=== PATIENT | male | born 1995 | race Caucasian/White ===

== ENCOUNTER 2016-06-23 01:24 | Emergency (ER) | payer BC, OTHER ==
[2016-06-23] MEDS ORDERED: ACETAMINOPHEN 325 MG TABLET PO ONE (02:15)
[2016-06-23] MEDS ORDERED: HYDROCODONE/ACETAMINOPHEN 5-325 MG TABLET PO ONE (03:06)
[2016-06-23] MEDS ORDERED: DEXAMETHASONE SOD PHOS INJ 10 MG/1 ML VIAL IV ONE (03:06)
[2016-06-23] MEDS ORDERED: HYDROCODONE/ACETAMINOPHEN 5-325 MG 6 TAB/DSPK PO PRN (04:11)
--- NOTE | 2016-06-23 04:14 | ER Document Report ---
ED General - General Chief Complaint: Congestion, ear pain Stated Complaint: CONGESTION Notes: Patient is a 20-year-old male who presents with complaint of bilateral ear pain , nasal congestion, and some cough. No fevers. No vomiting. No diarrhea. He says he feels as if there is a lot of pressure behind both ears. He has been taking some Sudafed at home. No other complaints at this time. TRAVEL OUTSIDE OF THE [place] IN LAST 30 DAYS: No - Related Data Allergies/Adverse Reactions: No Known Allergies Allergy (Verified 02/27/15 15:11) Past Medical History - Social History Smoking Status: Former Smoker Cigarette use (# per day): No Chew tobacco use (# tins/day): No Frequency of alcohol use: None Drug Abuse: None Family History: Reviewed & Not Pertinent GI Medical History: Reports: Hx Gastroesophageal Reflux Disease Past Surgical History: Reports: Hx Tonsillectomy - 06/10/11 - Immunizations Immunizations up to date: Yes Hx Diphtheria, Pertussis, Tetanus Vaccination: Yes - 2007 Review of Systems - Review of Systems Notes: My Normal Review Basic REVIEW OF SYSTEMS: CONSTITUTIONAL : Denies fever, chills, or sweats. Denies recent illness. EENT: He is a congestion. Bilateral ear pain. RESPIRATORY: Denies cough, cold, or chest congestion. Denies shortness of breath, difficulty breathing, or wheezing. GASTROINTESTINAL: Denies abdominal pain. Denies nausea, vomiting, or diarrhea. Denies constipation. Last BM: MUSCULOSKELETAL: Denies neck or back pain or joint pain or swelling. SKIN: Denies rash or skin lesions. NEUROLOGICAL: Denies altered mental status or loss of consciousness. Denies headache. Denies weakness or paralysis or loss of use of either side. Denies problems with gait or speech. Denies sensory or motor loss. ALL OTHER SYSTEMS REVIEWED AND NEGATIVE. Physical Exam - Vital signs Vitals: Temp Pulse Resp BP Pulse Ox 98.6 F 90 16 118/76 95 06/23/16 05:13 06/23/16 05:13 06/23/16 05:13 06/23/16 05:13 06/23/16 05:13 - Notes Notes: General Appearance: Well nourished, alert, cooperative, no acute distress, no obvious discomfort. Vitals: reviewed, See vital signs table. Head: no swelling or tenderness to the head Eyes: PERRL, EOMI, Conjuctiva clear Mouth: No decreasd moisture Throat: No tonsillar inflammation, No airway obstruction, No lymphadenopathy Ears: Patient is clear fluid behind both tympanic membranes consistent with serous otitis media. No redness or erythema to the tympanic membranes. Neck: Supple, no neck tenderness, No thyromegaly Lungs: No wheezing, No rales, No rhonci, No accessory muscle use, good air exchange bilaterally. Heart: Normal rate, Regular rythm, No murmur, no rub Skin: warm, dry, appropriate color, no rash Neuro: speech clear, oriented x 3, normal affect, responds appropriately to questions. Course - Vital Signs Vital signs: Temp Pulse Resp BP Pulse Ox 98.6 F 90 16 118/76 95 06/23/16 05:13 06/23/16 05:13 06/23/16 05:13 06/23/16 05:13 06/23/16 05:13 - Transfer of Care Notes: 06/23/16 07:09 I suspect patient's ear pain is related to pressure behind his ears from eustachian tube dysfunction from his upper respiratory tract infection. I did give him this Decadron. I encouraged him to use Motrin and Sudafed. Encouraged him to inhale steam to help with the congestion. Encouraged him to return to ER immediately if has fevers, severe headache, vomiting, or worsening pain. Patient agrees with plan and will be discharged home. Dictation of this chart was performed using voice recognition software; therefore, there may be some unintended grammatical errors. Discharge - Discharge Clinical Impression: Ear pain Qualifiers: Laterality: bilateral Qualified Code(s): H92.03 - Otalgia, bilateral URI (upper respiratory infection) Qualifiers: URI type: unspecified URI Qualified Code(s): J06.9 - Acute upper respiratory infection, unspecified Condition: Good Disposition: HOME, SELF-CARE Instructions: Oral Narcotic Medication ([facility]) Additional Instructions: UPPER RESPIRATORY ILLNESS: You have a viral infection of the respiratory passages -- a "cold." This common infection causes nasal congestion, drainage, and often sore throat and cough. It is highly contagious. The disease usually lasts about 10 to 14 days. There is no "cure" for the viral infection -- it must run its course. If there is a complication, such as bacterial infection in the nose, sinuses, middle ear, or bronchial tubes, antibiotics may be required. The antibiotics won't affect the virus. Drink plenty of fluids. A humidifier may help. An expectorant medication or decongestant may make you more comfortable. Use acetaminophen or ibuprofen for fever or aches. See the doctor if fever persists over two days, if there is any significant worsening of your symptoms, or if you simply fail to improve as expected. DECONGESTANT MEDICATION: A decongestant medicine has been prescribed. Often this medicine is combined in the same tablet with an antihistamine or expectorant. This type of medicine is helpful in treating a bad cold or sinus condition, as well as in treatment of the nasal congestion of hay fever. It is not of much benefit for lung infections. Decongestant medicines are related to stimulants. They can cause an increase in blood pressure and heart rate. Persons with heart disease and high blood pressure should not take decongestants without discussing this with the physician. If you develop palpitations, chest pain, headache, or tremors, stop the medicine and consult your physician. INHALED BRONCHODILATORS: You have received a treatment of and/or prescription for an inhaled bronchodilator -- a medication which stimulates the airways in the lung to dilate. This improves the flow of air in asthma, bronchitis, and emphysema. These medicines have some similarity to adrenaline, and can cause similar side effects: shakiness, racing heart, and a sense of nervousness. These side effects decrease with time. Contact your doctor if these side effects are severe. Do not over-use the medicine. Too-frequent use of the inhaler may make it ineffective. Call your doctor if the inhaler is not controlling your symptoms at the prescribed doses. STEROID MEDICATION: You have been given an injection of or oral medicine of the cortisone/ steroid class. This medication is used to control inflammation or allergy. Eloy t is usually only given for a short period of time, until the acute process subsides. There are usually no side effects from short-term use of cortisone-like medications. Some persons feel an increased sense of well-being and are not sleepy at bedtime. Long-term use of cortisone medications is best avoided, unless required for a severe condition. If your condition does not remit, or relapses after the course of corticosteroid medication, you should consult your physician. SMOKING: If you smoke, you should stop smoking. The tar and chemicals in cigarette smoke are harmful. Smoking has been shown to cause: emphysema chronic bronchitis lung cancer mouth and throat cancer stomach and pancreas cancer premature aging defects In addition, smoking increases ear and lung infections in children of smokers. FOLLOW-UP CARE: If you have been referred to a physician for follow-up care, call the physician s office for an appointment as you were instructed or within the next two days. If you experience worsening or a significant change in your symptoms, notify the physician immediately or return to the Emergency Department at any time for re-evaluation. Please take over the counter advil cold and sinus ( ibuprofen/pseudophedrine). Please return to the ER immediately if you have fevers, vomiting, or worsening pain. Please follow up with a doctor in 2-3 days for reevaluation. Forms: Return to Work
[2016-06-23 05:14] VITALS: BP 118/76
== END 2016-06-23 04:42 | disposition home or self-care (01) ==
LOC: ER 01:24
DX: J06.9 Acute upper respiratory infection, unspecified (principal); H92.03 Otalgia, bilateral; R09.81 Nasal congestion; R05 Cough; Z87.891 Personal history of nicotine dependence
CPT/HCPCS: 99283; 96374; J1100

== ENCOUNTER 2017-06-12 03:11 | Emergency (ER) | payer BC ==
[2017-06-12] MEDS ORDERED: IPRATROPIUM/ALBUTEROL 0.5-2.5 MG/3 ML AMPUL NEB ONE (03:37)
[2017-06-12] MEDS ORDERED: NORMAL SALINE 1000 ML 1,000 ML IV ONE (03:37)
[2017-06-12] MEDS ORDERED: KETOROLAC TROMETHAMINE INJ/PF 30 MG/1 ML SDV IV ONE (03:38)
[2017-06-12] MEDS ORDERED: ONDANSETRON HCL INJ/PF 4 MG/2 ML SDV IV ONE (03:38)
--- NOTE | 2017-06-12 03:39 | ER Document Report ---
ED General - General Chief Complaint: Flu Symptoms Stated Complaint: FLU LIKE SYMPTOMS Time Seen by Provider: 06/12/17 03:32 Notes: Patient is a 21-year-old male who comes emergency department for chief complaint of cough, fever, sore throat, and feeling wiped out. His symptoms have been going on for 2 days. He has not had a flu vaccine. He denies obvious exposures. Past medical history of tachycardia, takes no alcohol, states he has been taking it as prescribed. Only other medication is GERD. Former smoker. Denies any stimulants or IV drug abuse. TRAVEL OUTSIDE OF THE [place] IN LAST 30 DAYS: No - Related Data Allergies/Adverse Reactions: No Known Allergies Allergy (Verified 02/27/15 15:11) Past Medical History - General Information source: Patient - Social History Smoking Status: Current Every Day Smoker Smoking Education Provided: Yes - <3 min Frequency of alcohol use: Occasional Drug Abuse: None Lives with: Family Family History: Reviewed & Not Pertinent Patient has suicidal ideation: No Patient has homicidal ideation: No Renal/ Medical History: Denies: Hx Peritoneal Dialysis GI Medical History: Reports: Hx Gastroesophageal Reflux Disease Past Surgical History: Reports: Hx Tonsillectomy - 06/10/11 - Immunizations Immunizations up to date: Yes Hx Diphtheria, Pertussis, Tetanus Vaccination: Yes - 2007 Review of Systems - Review of Systems Constitutional: See HPI EENT: See HPI Cardiovascular: No symptoms reported Respiratory: See HPI Gastrointestinal: No symptoms reported Genitourinary: No symptoms reported Male Genitourinary: No symptoms reported Musculoskeletal: No symptoms reported Skin: No symptoms reported Hematologic/Lymphatic: No symptoms reported Neurological/Psychological: No symptoms reported Physical Exam - Vital signs Vitals: Temp Pulse Resp BP Pulse Ox 98.9 F 120 H 17 133/89 H 95 06/12/17 03:12 06/12/17 03:12 06/12/17 03:12 06/12/17 03:12 06/12/17 03:12 Interpretation: Normal - General General appearance: Other - Patient flushed, mildly ill-appearing - HEENT Head: Normocephalic, Atraumatic Eyes: Normal Conjunctiva: Normal Extraocular movements intact: Yes Eyelashes: Normal Pupils: PERRL Sinus: Normal Nasal: Normal Mouth/Lips: Normal Mucous membranes: Normal Pharynx: Other - No tonsils visible, erythema of the soft palate, otherwise unremarkable Neck: Normal. No: Anterior cervical chain, Posterior cervical chain - Respiratory Respiratory status: No respiratory distress. No: Labored, Tachypnea Chest status: Nontender Breath sounds: Productive cough, Wheezing - Mild right-sided expiratory wheeze Chest palpation: Normal - Cardiovascular Rhythm: Regular Heart sounds: Normal auscultation Murmur: No - Abdominal Inspection: Normal Distension: No distension Bowel sounds: Normal Tenderness: Nontender Organomegaly: No organomegaly - Back Back: Normal, Nontender - Extremities General upper extremity: Normal inspection, Nontender, Normal color, Normal ROM , Normal temperature General lower extremity: Normal inspection, Nontender, Normal color, Normal ROM , Normal temperature, Normal weight bearing. No: Karol's sign - Neurological Neuro grossly intact: Yes Cognition: Normal Orientation: AAOx4 Percy Coma Scale Eye Opening: Spontaneous [place] Coma Scale Verbal: Oriented [place] Coma Scale Motor: Obeys Commands [place] Coma Scale Total: 15 Speech: Normal Motor strength normal: LUE, RUE, LLE, RLE Sensory: Normal - Psychological Associated symptoms: Normal affect, Normal mood - Skin Skin Temperature: Warm Skin Moisture: Dry Skin Color: Flushed Course - Re-evaluation Re-evalutation: Patient afebrile currently but he is flushed, tachycardic, has some scant wheezes, erythematous pharynx. Giving fluids, meds, workup pending. Patient given Toradol, IV fluids. Afterwards he appeared to break a fever, tachycardia resolved except for mild tachycardia probably secondary to a DuoNeb which he was given for initial mild wheezing. Patient had episodes of productive cough with yellow phlegm. On reevaluation he states he feels great. Chest x-ray unremarkable, CBC shows elevated hemoglobin probably secondary to smoking since this is consistent with prior. I discussed this with patient, recommended phlebotomy, discussed smoking cessation. Patient states he has Ac planning on quitting smoking. Chemistry unremarkable, influenza negative , strep negative. Suspect viral although after discussion with patient because of his productive cough, return for fever from prior, decided to cover patient with doxycycline. Provided with work release. Discussed follow-up and return precautions. Patient states he is ready to leave. States understanding and agreement with plan. - Vital Signs Vital signs: Temp Pulse Resp BP Pulse Ox 99.4 F 109 H 20 123/77 96 06/12/17 05:26 06/12/17 05:26 06/12/17 05:26 06/12/17 05:26 06/12/17 05:26 - Laboratory Result Diagrams: 06/12/17 04:12 06/12/17 04:12 Laboratory results interpreted by me: 06/12/17 04:12 RBC 5.74 H Hgb 17.8 H Discharge - Discharge Clinical Impression: Productive cough Fever Qualifiers: Fever type: unspecified Qualified Code(s): R50.9 - Fever, unspecified Condition: Stable Disposition: HOME, SELF-CARE Additional Instructions: Your chest x-ray and workup did not show any specific abnormalities. Influenza test and strep test are negative. Because of your productive cough and fevers you are prescribed doxycycline. Rest, drink plenty of fluids, take Tylenol and ibuprofen for fever/body aches. Follow-up with primary care. Return if you worsen including difficulty breathing. Prescriptions: RX: Doxycycline Hyclate 100 mg PO BID #14 capsule Forms: Return to Work
[2017-06-12 04:28] LABS: ABSOLUTE LYMPHOCYTES (AUTO) 2.5 10^3/uL (0.5-4.7); ABSOLUTE MONOCYTES (AUTO) 1.2 10^3/uL (0.1-1.4); BASOPHILS % (AUTO) 0.4 % (0-2); EOSINOPHILS % (AUTO) 0.1 % (0-6); HEMATOCRIT 50.9 % (37.9-51.0); HEMOGLOBIN 17.8 g/dL (13.5-17.0); HGB HCT DIFFERENCE 2.5; LYMPHOCYTES % (AUTO) 25.4 % (13-45); MEAN CORPUSCULAR VOLUME 89 fl (80-97); MONOCYTES % (AUTO) 12.4 % (3-13); RED BLOOD COUNT 5.74 10^6/uL (4.35-5.55); RED CELL DISTRIBUTION WIDTH 13.2 % (11.5-14.0); SEGMENTED NEUTROPHILS % (AUTO) 61.7 % (42-78); WHITE BLOOD COUNT 9.7 10^3/uL (4.0-10.5)
[2017-06-12 04:40] LABS: ANION GAP 14 (5-19); BLOOD UREA NITROGEN 10 mg/dL (7-20); CALCIUM 9.8 mg/dL (8.4-10.2); CARBON DIOXIDE 25 mmol/L (22-30); CHLORIDE 102 mmol/L (98-107); CREATININE RESULT 0.81 mg/dL (0.52-1.25); GLUCOSE 100 mg/dL (75-110); POTASSIUM 4.2 mmol/L (3.6-5.0)
--- NOTE | 2017-06-12 04:50 | RADIOLOGY REPORT (SQ) ---
EXAM DESCRIPTION: CHEST PA/LAT CLINICAL HISTORY: 21 years, Male, fever, cough COMPARISON: 02/26/2015. LIMITATIONS: None. FINDINGS: Adequate lung volume, clear parenchyma, normal cardiac silhouette, and intact bony thorax. IMPRESSION: No acute cardiopulmonary findings. 2011 [employer]- All Rights Reserved
[2017-06-12] MEDS ORDERED: DOXYCYCLINE HYCLATE 100 MG TABLET PO ONE (05:20)
[2017-06-12 05:32] VITALS: BP 123/77
== END 2017-06-12 05:33 | disposition home or self-care (01) ==
LOC: ER 03:11
DX: R05 Cough (principal); R50.9 Fever, unspecified; J02.9 Acute pharyngitis, unspecified; R06.2 Wheezing; F17.200 Nicotine dependence, unspecified, uncomplicated; R00.0 Tachycardia, unspecified; K21.9 Gastro-esophageal reflux disease without esophagitis; Z79.899 Other long term (current) drug therapy
CPT/HCPCS: 94640; 99283; 96361; 96374; 96375; 36415; 87070; 87880; 85025; 80048; 87804; 71020; J1885; J2405; J7030; J7620

== ENCOUNTER 2018-09-01 11:16 | Day surgery (SDC) | payer BC ==
[2018-09-01] MEDS ORDERED: FLUMAZENIL INJ 0.5 MG/5 ML VIAL ONE (11:24)
[2018-09-01] MEDS ORDERED: NALOXONE HCL INJ/PF 0.4 MG/1 ML SDV ONE (11:24)
[2018-09-01] MEDS ORDERED: ONDANSETRON HCL INJ/PF 4 MG/2 ML SDV ONE (11:24)
[2018-09-01] MEDS ORDERED: GLUCAGON,HUMAN RECOMB 1 MG INJ ONE (11:25)
[2018-09-01] MEDS ORDERED: EPINEPHRINE INJ 1 MG/10 ML DISP.SYRIN ONE (11:25)
[2018-09-01] MEDS: DIPHENHYDRAMINE HCL 50 MG/ML VIAL ONE ×2 (11:55→11:56)
[2018-09-01] MEDS: MIDAZOLAM 2 MG/2 ML INJ ONE ×4 (11:57→12:01)
[2018-09-01] MEDS: FENTANYL CITRATE INJ/PF 100 MCG/2 ML AMPUL ONE ×3 (11:59→12:03)
--- NOTE | 2018-09-01 12:14 | Operative Report ---
Operative Report DATE OF SURGERY: 09/01/18 Operative Report: The risks benefits and alternatives of the procedure explained to the patient in detail and informed consent is obtained.A GIF Olympus video scope was inserted into the patient's mouth and hypopharynx, the esophagus is identified intubated and insufflated, the scope was then advanced through the esophagus stomach and duodenum, retroflexion maneuver is done, the esophagus stomach and first and second portions of the duodenum examined. PREOPERATIVE DIAGNOSIS: Gastroesophageal reflux disease POSTOPERATIVE DIAGNOSIS: Esophagitis. Hiatal hernia. Gastritis status post biopsy for Helicobacter pylori. Duodenitis OPERATION: EGD with biopsy SURGEON: SUMAN BARRY ANESTHESIA: Moderate Sedation - 50 mg of Benadryl, 4 mg of Versed, 50 mcg of fentanyl. Conscious sedation monitoring time 30 minutes. TISSUE REMOVED OR ALTERED: As noted above. COMPLICATIONS: None. ESTIMATED BLOOD LOSS: None. INTRAOPERATIVE FINDINGS: As noted above. PROCEDURE: Patient tolerated the procedure well. No immediate postprocedure complications are noted. Patient discharged in good condition. Discharge date 09/01/2018. Discharge diet: Regular. Discharge activity: Negative. 2-3-week follow-up to discuss findings. Patient is instructed to call the office or proceed to the emergency room should he be any further prescriptions. Wait on the pathology.
[2018-09-01 13:07] VITALS: BP 114/83
[2018-09-01] MEDS ORDERED: DIPHENHYDRAMINE HCL 50 MG/ML VIAL ONE (13:15)
== END 2018-09-01 13:20 | disposition home or self-care (01) ==
LOC: END 11:16
PROVIDERS: ATTEND Internal Medicine Gastroenterology
DX: K21.0 Gastro-esophageal reflux disease with esophagitis (principal); K44.9 Diaphragmatic hernia without obstruction or gangrene; K29.80 Duodenitis without bleeding; K29.50 Unspecified chronic gastritis without bleeding; Z87.891 Personal history of nicotine dependence; Z79.899 Other long term (current) drug therapy
CPT/HCPCS: 43239; 88342 ×2; 88305 ×2; J2250; J1200; J3010; J0171; J1610; J2310; J2405; J3490

== ENCOUNTER 2019-07-29 18:47 | Emergency (ER) | payer BC ==
[2019-07-29] MEDS ORDERED: IBUPROFEN 800 MG TABLET PO ONE (19:37)
--- NOTE | 2019-07-29 20:38 | RADIOLOGY REPORT (SQ) ---
EXAM DESCRIPTION: XR FOOT 3 OR MORE VIEWS, XR ANKLE 3 OR MORE VIEWS COMPLETED DATE/TME: 07/29/2019 19:35 CLINICAL HISTORY: 24 years, Male, twisting motion, pain and swelling COMPARISON: None. NUMBER OF VIEWS: TECHNIQUE: LIMITATIONS: None. FINDINGS: 3 views of the left ankle and 3 views of the left foot were obtained. There is lateral soft tissue swelling in the region of the ankle. No fracture or dislocation. Mineralization of bone appears normal. IMPRESSION: Lateral ankle soft tissue swelling. copyright 2010 [employer]- All Rights Reserved
--- NOTE | 2019-07-29 20:38 | RADIOLOGY REPORT (SQ) ---
EXAM DESCRIPTION: XR FOOT 3 OR MORE VIEWS, XR ANKLE 3 OR MORE VIEWS COMPLETED DATE/TME: 07/29/2019 19:35 CLINICAL HISTORY: 24 years, Male, twisting motion, pain and swelling COMPARISON: None. NUMBER OF VIEWS: TECHNIQUE: LIMITATIONS: None. FINDINGS: 3 views of the left ankle and 3 views of the left foot were obtained. There is lateral soft tissue swelling in the region of the ankle. No fracture or dislocation. Mineralization of bone appears normal. IMPRESSION: Lateral ankle soft tissue swelling. copyright 2010 [employer]- All Rights Reserved
--- NOTE | 2019-07-29 20:47 | ER Document Report ---
HPI - HPI Time Seen by Provider: 07/29/19 19:32 Pain Level: 4 Notes: Otherwise healthy 24-year-old male presents emergency department chief complaint of left ankle injury. Patient reports just prior to arrival he stepped into a hole at his nephew's birthday constitution party and he twisted his ankle. He reports history of fracture to the same ankle. Past Medical History - General Information source: Patient - Social History Smoking Status: Former Smoker Frequency of alcohol use: Occasional Drug Abuse: None Family History: Reviewed & Not Pertinent Patient has suicidal ideation: No Patient has homicidal ideation: No - Past Medical History Cardiac Medical History: Denies: Hx Coronary Artery Disease, Hx Heart Attack, Hx Hypertension Pulmonary Medical History: Denies: Hx Asthma, Hx Bronchitis, Hx COPD, Hx Pneumonia Neurological Medical History: Denies: Hx Cerebrovascular Accident, Hx Seizures Renal/ Medical History: Denies: Hx Peritoneal Dialysis GI Medical History: Reports: Hx Gastroesophageal Reflux Disease Musculoskeletal Medical History: Denies Hx Arthritis Past Surgical History: Reports: Hx Tonsillectomy - 06/10/11 - Immunizations Immunizations up to date: Yes Hx Diphtheria, Pertussis, Tetanus Vaccination: Yes - 2007 [facility] Provider Document - CONSTITUTIONAL Notes: PHYSICAL EXAMINATION: GENERAL: Well-appearing, well-nourished and in no acute distress. HEAD: Atraumatic, normocephalic. EYES: Pupils equal round extraocular movements intact, conjunctiva are normal. ENT: Nares patent NECK: Normal range of motion LUNGS: No respiratory distress Musculoskeletal: Limited range of motion left ankle, left lateral ankle swelling, mild ecchymosis without erythema. Strong dorsalis pedis pulse. NEUROLOGICAL: Normal speech. PSYCH: Normal mood, normal affect. SKIN: Warm, Dry, normal turgor, no rashes or lesions noted. - INFECTION CONTROL TRAVEL OUTSIDE OF THE [place] IN LAST 30 DAYS: No Course - Re-evaluation Re-evalutation: X-ray is negative, patient placed in ankle stirrup splint and crutches. Patient will follow-up with orthopedics if not improving over the next 1 to 2 weeks. - Vital Signs Vital signs: Temp Pulse Resp BP Pulse Ox 98.3 F 94 16 125/78 96 07/29/19 19:09 07/29/19 19:09 07/29/19 19:09 07/29/19 19:07/29/19 19:09 Procedures - Immobilization Left ankle Pre-Proc Neuro Vasc Exam: Normal Immobilizer type: Ankle stirrup, Crutches Performed by: PCT Post-Proc Neuro Vasc Exam: Normal Alignment checked and good: Yes Discharge - Discharge Clinical Impression: Ankle sprain Qualifiers: Encounter type: initial encounter Involved ligament of ankle: unspecified ligament Laterality: left Qualified Code(s): S93.402A - Sprain of unspecified ligament of left ankle, initial encounter Condition: Stable Disposition: HOME, SELF-CARE Instructions: Sprained Ankle ([facility]) Additional Instructions: As discussed please continue to take ibuprofen 600 mg every 6 hours. Use the narcotic pain medication for severe pain only. No driving while taking this medication. Over the next few days ice and elevate the extremity. Use the crutches and ankle stirrup splint as discussed, no work until Wednesday. Follow-up with orthopedics if not improving over the next 1 to 2 weeks. Prescriptions: Hydrocodone/Acetaminophen [Lee 5-325 mg Tablet] 1 tab PO Q4H #12 tablet Forms: Return to School Referrals: REJI RYAN DO [ACTIVE STAFF] - Follow up as needed DEEJAY NASH JR, DO [ACTIVE PROVISIONAL STAFF] - Follow up as needed
[2019-07-29 20:51] VITALS: BP 125/81
== END 2019-07-29 21:14 | disposition home or self-care (01) ==
LOC: ER 18:47
PROC: 2W3RX1Z Immobilization of Left Lower Leg using Splint (ICD-10-PCS; principal; 2019-07-29)
DX: S93.402A Sprain of unspecified ligament of left ankle, initial encounter (principal); W17.2XXA Fall into hole, initial encounter; Z87.891 Personal history of nicotine dependence
CPT/HCPCS: 99283